=== PATIENT | female | born 1945 | race Caucasian/White ===

== ENCOUNTER 2021-01-21 18:47 | Day surgery (SDCO) | payer MEDICARE, OTHER ==
[~2021-01-21] VITALS: Ht 152.4 cm; Wt 54.1 kg
[2021-01-22] MEDS ORDERED: NORCO 5-325 TA1 EACH PO (04:23)
[2021-01-22] MEDS ORDERED: CYCLOBENZAPRINE10 MG PO (04:25)
[2021-01-22] MEDS ORDERED: CARDIZEM CD240 MG PO (04:28)
[2021-01-22] MEDS ORDERED: IMURAN50 MG PO (04:30)
[2021-01-22] MEDS ORDERED: DIAZEPAM 5MG TAB5 MG PO (04:31)
[2021-01-22] MEDS ORDERED: COZAAR100 MG PO (04:32)
[2021-01-22] MEDS ORDERED: ZOCOR 20MG TABL20 MG PO (04:34)
[2021-01-22] MEDS ORDERED: CLIMARA0.075 MG PO (04:35)
[2021-01-22] MEDS ORDERED: NEURONTIN300 MG PO (04:38)
[2021-01-22] MEDS ORDERED: BROVANA15 MCG/2 M NEB (04:43)
[2021-01-22] MEDS ORDERED: PULMICORT0.5 MG/2 M NEB (04:44)
[2021-01-22] MEDS ORDERED: LASIX40 MG PO (04:46)
[2021-01-22] MEDS ORDERED: SYNTHROID25 MCG PO (05:00)
[2021-01-22] MEDS ORDERED: VITAMIN D21250 MCG PO (05:01)
[2021-01-22] MEDS ORDERED: LOMOTIL1 EACH PO (05:02)
--- NOTE | 2021-01-22 05:56 | NUR ---
0410 SKIN TEAR NOTED TO THE RIGHT ELBOW WITH BRUISING AROUND SKIN TEAR. SCATTERED BRUISING NOTED ON BILAT. UPPER EXTREMITIES AND ON FINGERTIPS OF THE RIGHT HAND. BRUISING NOTED TO BILAT. KNEES AND LEFT FOOT AND ANKLE. IMMOBILIZER PRESENT ON RIGHT LEG.
[2021-01-22 06:17] LABS: BASOPHIL 0.5 % (0-2); EOSINOPHIL 0.7 % (0-7); HCT 35.8 % (37.0-47.0); HGB 12.3 g/dl (12.5-16.0); LYMPHOCYTE 7.3 % (15-48); MCH 33.7 pg (25.0-31.0); MCHC 34.4 g/dL (32.0-36.0); MCV 98.1 fL (78.0-100.0); MONOCYTE 7.4 % (0-12); MPV 9.4 fL (6.0-9.5); NEUTROPHIL 83.2 % (41-80); NRBC 0; PLT 241 K/uL (150-400); RBC 3.65 M/uL (4.20-5.40); RDW 15.5 % (11.5-14.0); WBC 10.6 K/uL (4.0-10.5)
[2021-01-22 06:49] LABS: ALBUMIN 3.1 g/dL (3.4-5.0); BILIRUBIN - TOTAL 0.4 mg/dL (0.2-1.0); BUN/CREAT RATIO (CALC) 21.8 RATIO; CREATININE 0.87 mg/dL (0.51-0.95); POTASSIUM 3.9 mmol/L (3.5-5.1); TOTAL PROTEIN 6.1 g/dL (6.4-8.2)
== END 2021-01-22 15:57 | disposition home or self-care (01) ==
LOC: FER 18:47 → FMS 01-22 02:46
PROVIDERS: Nurse Practitioner; ADMIT Internal Medicine
DX: M25.461 Effusion, right knee (principal); M17.11 Unilateral primary osteoarthritis, right knee; M11.261 Other chondrocalcinosis, right knee; M23.41 Loose body in knee, right knee; M71.21 Synovial cyst of popliteal space [Baker], right knee; S50.01XA Contusion of right elbow, initial encounter; S51.011A Laceration without foreign body of right elbow, initial encounter; S80.12XA Contusion of left lower leg, initial encounter; J44.9 Chronic obstructive pulmonary disease, unspecified; K50.90 Crohn's disease, unspecified, without complications; I10 Essential (primary) hypertension; I25.10 Atherosclerotic heart disease of native coronary artery without angina pectoris; E03.9 Hypothyroidism, unspecified; M54.42 Lumbago with sciatica, left side; M41.9 Scoliosis, unspecified; M79.605 Pain in left leg; Z87.891 Personal history of nicotine dependence; Z79.899 Other long term (current) drug therapy; Z88.5 Allergy status to narcotic agent; Z88.6 Allergy status to analgesic agent; Z91.012 Allergy to eggs; Z91.041 Radiographic dye allergy status; Z95.1 Presence of aortocoronary bypass graft; Z96.642 Presence of left artificial hip joint; Z20.822 Contact with and (suspected) exposure to COVID-19; W10.8XXA Fall (on) (from) other stairs and steps, initial encounter; W18.30XA Fall on same level, unspecified, initial encounter
CPT/HCPCS: 36415; 73564; 73700; 80053; 84484; 85025; 93971; 94640; 97162; 97166; 97530-GP; 97535; G0378; J1650; U0002

== ENCOUNTER 2021-05-25 11:36 | Inpatient (IN) | payer MEDICARE, OTHER ==
[~2021-05-25] VITALS: Ht 152.4 cm; Wt 52.8 kg
[~2021-05-25 11:36] MED LIST: BROVANA15 MCG/2 M NEB; CARDIZEM CD240 MG PO; CLIMARA0.075 MG PO; COZAAR100 MG PO; CYCLOBENZAPRINE10 MG PO; DIAZEPAM 5MG TAB5 MG PO; IMURAN50 MG PO; LASIX40 MG PO; LOMOTIL1 EACH PO; NEURONTIN300 MG PO; NORCO 5-325 TA1 EACH PO; PULMICORT0.5 MG/2 M NEB; SYNTHROID25 MCG PO; VITAMIN D21250 MCG PO; ZOCOR 20MG TABL20 MG PO
[2021-05-25 12:31] LABS: BASOPHIL 0.3 % (0-2); EOSINOPHIL 0.7 % (0-7); HGB 11.2 g/dl (12.5-16.0); LYMPHOCYTE 4.9 % (15-48); MCHC 31.1 g/dL (32.0-36.0); MCV 102.9 fL (78.0-100.0); MONOCYTE 4.2 % (0-12); MPV 10.2 fL (6.0-9.5); NEUTROPHIL 86.5 % (41-80); NRBC 0; PLT 184 K/uL (150-400); RDW 16.5 % (11.5-14.0); WBC 7.3 K/uL (4.0-10.5)
[2021-05-25 13:05] LABS: LACTIC ACID 1.8 mmol/L (0.4-1.9)
[2021-05-25 13:58] LABS: ALBUMIN 2.2 g/dL (3.4-5.0); BILIRUBIN - TOTAL 0.4 mg/dL (0.2-1.0); BUN/CREAT RATIO (CALC) 22.7 RATIO; CREATININE 1.98 mg/dL (0.51-0.95); GLOBULIN (CALCULATION) 3.4 g/dL; POTASSIUM 3.5 mmol/L (3.5-5.1); TOTAL PROTEIN 5.6 g/dL (6.4-8.2)
[2021-05-25 15:44] LABS: LDH 382 U/L (81-234)
[2021-05-26 03:40] LABS: BASOPHIL 0.2 % (0-2); EOSINOPHIL 0 % (0-7); HCT 32.1 % (37.0-47.0); LYMPHOCYTE 7.5 % (15-48); MCH 32.5 pg (25.0-31.0); MCHC 31.2 g/dL (32.0-36.0); MCV 104.2 fL (78.0-100.0); MONOCYTE 3.6 % (0-12); MPV 9.6 fL (6.0-9.5); NEUTROPHIL 86.4 % (41-80); NRBC 0; PLT 151 K/uL (150-400); RBC 3.08 M/uL (4.20-5.40); RDW 16.3 % (11.5-14.0); WBC 4.4 K/uL (4.0-10.5)
[2021-05-26 04:01] LABS: ALBUMIN 1.9 g/dL (3.4-5.0); BILIRUBIN - TOTAL 0.2 mg/dL (0.2-1.0); BUN/CREAT RATIO (CALC) 27.3 RATIO; CREATININE 1.28 mg/dL (0.51-0.95); GLOBULIN (CALCULATION) 3.3 g/dL; MAGNESIUM 2.5 mg/dL (1.8-2.4); PHOSPHORUS 4.4 mg/dL (2.6-4.7); POTASSIUM 4.6 mmol/L (3.5-5.1); TOTAL PROTEIN 5.2 g/dL (6.4-8.2)
--- NOTE | 2021-05-27 05:40 | NUR ---
[facility] [place] DOWN TIME RN GAVE 50 MCG OF FENTANYL AT 322 50 MCG OF FENTANYL AT 420 2 MG OF VERSED AT 405
--- NOTE | 2021-05-27 05:42 | NUR ---
PT STARTED COUGHING UP BRIGHT RED BLOOD AT 0000 PT STARTED STATING HER BACK HURTS AND HAVING LABORED BREATHING WHILE DESTATING RN GOT STRAIGHTEDGE WORKER IN ROOM TO EVALUATE RN PUSHED LASIX AND MEDS TO TO HELP WITH PAIN AND RELAX PATIENT PT STATED SHE DID NOT WANTED TO BE VENTED AND WANTED COMFORT MEASURES ONLY PT WAS A/O X3 AND CONTINUED TO TELL FAMILY SHE DID NOT WANT TO BE VENTED DESPITE THEIR WISHES
[2021-05-27 06:14] LABS: BASOPHIL 0.3 % (0-2); EOSINOPHIL 0 % (0-7); HCT 35.7 % (37.0-47.0); HGB 11.4 g/dl (12.5-16.0); LYMPHOCYTE 3.6 % (15-48); MCH 32.4 pg (25.0-31.0); MCHC 31.9 g/dL (32.0-36.0); MCV 101.4 fL (78.0-100.0); MONOCYTE 3.1 % (0-12); MPV 9.8 fL (6.0-9.5); NEUTROPHIL 91.4 % (41-80); NRBC 0; PLT 237 K/uL (150-400); RBC 3.52 M/uL (4.20-5.40); RDW 16.2 % (11.5-14.0); WBC 7.7 K/uL (4.0-10.5)
[2021-05-27 06:42] LABS: BUN/CREAT RATIO (CALC) 35.9 RATIO; CREATININE 0.92 mg/dL (0.51-0.95); POTASSIUM 4.2 mmol/L (3.5-5.1)
[2021-05-27 06:46] LABS: IRON % SATURATION 19.3 %SAT (20-50)
--- NOTE | 2021-05-27 20:03 | NUR ---
1830: MD WANTS PT TO SLOWLY TRANSITION FROM CPAP TO HIGH FLOW. MD WANTS HER TO BE PLACED ON HIGH FLOW TONIGHT UNTIL BEDTIME AND THEN SWITCHED OVER TO CPAP WHILE ASLEEP. DURING THE DAY TO PLACE PT ON HIGH FLOW 30 MINUTES PRIOR TO MEALS AND 30 MINUTES AFTER MEALS LONG PATIENT TOLERATES.
[2021-05-28 06:51] LABS: BASOPHIL 0.1 % (0-2); EOSINOPHIL 0 % (0-7); HCT 33.6 % (37.0-47.0); HGB 10.6 g/dl (12.5-16.0); LYMPHOCYTE 2.5 % (15-48); MCH 32.1 pg (25.0-31.0); MCHC 31.5 g/dL (32.0-36.0); MCV 101.8 fL (78.0-100.0); MONOCYTE 2.9 % (0-12); MPV 9.6 fL (6.0-9.5); NRBC 0; PLT 224 K/uL (150-400); RDW 16.5 % (11.5-14.0)
[2021-05-28 06:52] LABS: NEUTROPHIL 93.3 % (41-80); WBC 13.5 K/uL (4.0-10.5)
[2021-05-28 07:56] LABS: BILIRUBIN - TOTAL 0.4 mg/dL (0.2-1.0); BUN/CREAT RATIO (CALC) 46.5 RATIO; CREATININE 0.71 mg/dL (0.51-0.95); FOLIC ACID (SERUM) 19.1 ng/mL (8.6-58.9); MAGNESIUM 2.5 mg/dL (1.8-2.4); POTASSIUM 4.5 mmol/L (3.5-5.1)
--- NOTE | 2021-05-28 13:37 | NUR ---
1325: PT HAD 6 BEAT RUN OF ROSARIO BARBER NOTIFIED MD BY PHONE. PT WAS SITTING IN BED ON HIGHFLOW WHEN THIS EVENT OCCURRED. PT RHYTHM FOLLOWING EVENT IS SINUS RHYTHM WITH BBB WITH OCCASSIONAL UNIFOCAL PVC's. PT DID HAVE ELEVATED TROPONIN THIS MORNING 3.368 BUT IS DOWN FROM YESTERDAY. WILL CONTINUE TO MONITOR. -TY
--- NOTE | 2021-05-28 20:00 | NUR ---
FLORINDA ROCK NOTIFIED ON RUN OF VTACH. ORDER TO MONITOR AND NOTIFIED ON ANY OTHER RHYTHM CHANGE
--- NOTE | 2021-05-28 20:20 | NUR ---
DURING THE SHIFT PT WAS PLACED ON HIGH FLOW 40 L 100% 36 DEGREES CELCIUS DURING MEALS, IN BETWEEN PT WAS PLACED BACK ON CPAP 10 90%. PT BECAME VERY AGITATED TODAY WHILE BEING ON CPAP AND WOULD HOLLER OUT FROM ROOM WANTING CPAP MASK OFF. DUE TO THE PATIENTS WORK OF BREATHING AND O2 SATURATION THE RN NOTIFIED PT OF IMPORTANCE OF WEARING THE CPAP MASK AND THAT SHE NEEDED TO CONTINUE TO BREATHE IN ORDER TO BE WELL OXYGENATED. AROUND 1700 PT BECOME AGITATED AND DISCONNECTED THE CPAP CONNECTION AND HAD DESAT INTO 60'S. PT WAS QUICKLY ATTENDED TO BY AN AIDE AND CPAP TUBING CONNECTIONS WERE REPLACED. PT WAS EDUCATED ABOUT THE IMPORTANCE OF KEEPING MASK ON AND NOT 'FIDDLING' WITH CONNECTIONS. MD WAS NOTIFIED OF EVENTS.
--- NOTE | 2021-05-28 23:06 | NUR ---
APPROX 2200 PT YELLLING OUT PULLING OFF BPAP. OIL SPECULATOR AWARE. RT NOTIFIED. PT PLACED ON VAP 40/100% WITH NRB. PT REPEATLY TAKING OFF NRB.ENCOURAGED AND EDUCATED TO KEEP ON.
[2021-05-29 07:26] LABS: BUN/CREAT RATIO (CALC) 51.4 RATIO; CREATININE 0.74 mg/dL (0.51-0.95); MAGNESIUM 2.7 mg/dL (1.8-2.4)
[2021-05-29 07:41] LABS: BASOPHIL 0.2 % (0-2); EOSINOPHIL 0 % (0-7); HGB 11.5 g/dl (12.5-16.0); LYMPHOCYTE 2.5 % (15-48); MCH 32.6 pg (25.0-31.0); MCHC 31.9 g/dL (32.0-36.0); MONOCYTE 3.4 % (0-12); NEUTROPHIL 91.1 % (41-80); NRBC 0.2; PLT 278 K/uL (150-400); RBC 3.53 M/uL (4.20-5.40); RDW 16.1 % (11.5-14.0)
[2021-05-31 06:44] LABS: BASOPHIL 0.3 % (0-2); EOSINOPHIL 0 % (0-7); HCT 34.5 % (37.0-47.0); HGB 10.6 g/dl (12.5-16.0); LYMPHOCYTE 0.9 % (15-48); MCH 32.3 pg (25.0-31.0); MCHC 30.7 g/dL (32.0-36.0); MCV 105.2 fL (78.0-100.0); MONOCYTE 3.7 % (0-12); MPV 10.3 fL (6.0-9.5); NEUTROPHIL 88.8 % (41-80); NRBC 0.3; PLT 303 K/uL (150-400); RBC 3.28 M/uL (4.20-5.40); RDW 16.2 % (11.5-14.0); WBC 11.8 K/uL (4.0-10.5)
[2021-05-31 07:01] LABS: BUN/CREAT RATIO (CALC) 53.8 RATIO; CREATININE 0.65 mg/dL (0.51-0.95); MAGNESIUM 2.8 mg/dL (1.8-2.4); POTASSIUM 4.2 mmol/L (3.5-5.1)
--- NOTE | 2021-05-31 18:33 | NUR ---
SON FROY CALLED AND STATED IN A LOUD AGRESSIVE VOICETHAT STEP DAD WAS KICKED OFF OF UNIT. hE WANTED TO KNOW POLICY, BUT REFUSED TO LISTEN TO ME BECAUSE "YOU HAVE A THORN IN MY ASS SINCE MY MOM WAS ADMITTED." i ATTEMPTED TO TRANSFER SON TO RFID ENGINEER AND ACCIDENTLY DISCONNETED PHONE. SON CALLED BACK AND WAS TRANSFERRED TO HOUSE. HAD PREVIOUSLY REQUESTED poa AND LIVING WILL FROM FAMILY ON tuesday BUT STILL NOT RECEIVED. STATED WAS ON FILE, CALLED MEDICAL RECORDS NO ADVANCED DIRECTIVES ON FILE.
[2021-06-01 06:47] LABS: BASOPHIL 0.6 % (0-2); EOSINOPHIL 0 % (0-7); HCT 40.7 % (37.0-47.0); HGB 12.7 g/dl (12.5-16.0); LYMPHOCYTE 1.5 % (15-48); MCH 32.7 pg (25.0-31.0); MCHC 31.2 g/dL (32.0-36.0); MCV 104.9 fL (78.0-100.0); MONOCYTE 5.5 % (0-12); MPV 10.1 fL (6.0-9.5); NEUTROPHIL 86.2 % (41-80); NRBC 0.1; PLT 450 K/uL (150-400); RBC 3.88 M/uL (4.20-5.40); RDW 16.3 % (11.5-14.0); WBC 15.1 K/uL (4.0-10.5)
[2021-06-01 07:12] LABS: ALBUMIN 2.6 g/dL (3.4-5.0); BILIRUBIN - TOTAL 0.5 mg/dL (0.2-1.0); BUN/CREAT RATIO (CALC) 54.1 RATIO; CREATININE 0.61 mg/dL (0.51-0.95); MAGNESIUM 2.8 mg/dL (1.8-2.4); POTASSIUM 4.4 mmol/L (3.5-5.1); TOTAL PROTEIN 5.6 g/dL (6.4-8.2)
--- NOTE | 2021-06-02 18:02 | NUR ---
BIPAP REMOVED AT 1525 FOR COMFORT CARE. AT BEDSIDE. PT NON RESPONSIVE. 02 SATS GRADUALLY DROPPED, PT BECAME BRADYCARDIC, UNTIL AT 1650.
== END 2021-06-02 18:25 | disposition expired | DRG 871 ==
LOC: FER 11:36 → FTCU 15:04
PROVIDERS: Emergency Medicine; Internal Medicine; ADMIT Family Medicine
PROC: 8E0ZXY6 Isolation (ICD-10-PCS; principal; 2021-05-25)
PROC: XW033E5 Introduction of Remdesivir Anti-infective into Peripheral Vein, Percutaneous Approach, New Technology Group 5 (ICD-10-PCS; 2021-05-25)
PROC: XW0DXM6 Introduction of Baricitinib into Mouth and Pharynx, External Approach, New Technology Group 6 (ICD-10-PCS; 2021-05-25)
PROC: 5A0955A Assistance with Respiratory Ventilation, Greater than 96 Consecutive Hours, High Flow/Velocity Cannula (ICD-10-PCS; 2021-05-25)
DX: A41.9 Sepsis, unspecified organism (principal); U07.1 COVID-19; J96.01 Acute respiratory failure with hypoxia; J12.82 Pneumonia due to coronavirus disease 2019; G93.41 Metabolic encephalopathy; I21.A1 Myocardial infarction type 2; J44.0 Chronic obstructive pulmonary disease with (acute) lower respiratory infection; J44.1 Chronic obstructive pulmonary disease with (acute) exacerbation; N17.9 Acute kidney failure, unspecified; E87.0 Hyperosmolality and hypernatremia; R65.20 Severe sepsis without septic shock; Z66 Do not resuscitate; Z51.5 Encounter for palliative care; D50.9 Iron deficiency anemia, unspecified; N18.9 Chronic kidney disease, unspecified; E86.1 Hypovolemia; I50.9 Heart failure, unspecified; D51.9 Vitamin B12 deficiency anemia, unspecified; E03.9 Hypothyroidism, unspecified; I25.10 Atherosclerotic heart disease of native coronary artery without angina pectoris; Z95.1 Presence of aortocoronary bypass graft; Z88.5 Allergy status to narcotic agent; Z88.6 Allergy status to analgesic agent; Z91.012 Allergy to eggs; Z79.899 Other long term (current) drug therapy; Z87.891 Personal history of nicotine dependence; Z90.710 Acquired absence of both cervix and uterus; Z98.890 Other specified postprocedural states
CPT/HCPCS: 36415; 36600; 71045; 80048; 80053; 82607; 82728; 82746; 82803; 83540; 83550; 83605; 83615; 83735; 83880; 84100; 84145; 84443; 84484; 85025; 85379; 87040; 93005; 94010; 94640; 94660; 97167; 97530; C9399; J0456; J0696; J1100; J1630; J1650; J1940; J2060; J2250; J2270; J2916; J2930; J3010; J3360; J3420; J7030; J7050; J7070; J8540; U0002